=== PATIENT | female | born 1990 | race Caucasian/White ===

== ENCOUNTER 2016-06-01 13:26 | Emergency (ER) | payer SELFPAY ==
[~2016-06-01] VITALS: Ht 165.1 cm; Wt 65.0 kg
[~2016-06-01 13:26] MED LIST: HYDR-3240 PO
[2016-06-01] MEDS ORDERED: LORazepam 2 MG/ML, 1ML ONE (13:32)
[2016-06-01] MEDS ORDERED: LORazepam 2 MG/ML, 1ML IM ONE (14:00)
[2016-06-01] MEDS ORDERED: SODIUM CHLORIDE 0.9% 1,000ML IVBOLUS ONE ×2 (14:00→15:30)
[2016-06-01] MEDS ORDERED: SODIUM CHLORIDE FLUSH 10ML SYR IVF ONE (14:00)
[2016-06-01 14:04] LABS: ASPARTATE AMINO TRANSFERASE 12 U/L (15-37); BLOOD UREA NITROGEN 20 mg/dL (7-18)
[2016-06-01 16:08] VITALS: BP_DIAS 55
[2016-06-01 16:53] VITALS: BP_SYST 111
== END 2016-06-01 18:09 | disposition home or self-care (01) ==
LOC: ED 18:03
DX: G40.909 Epilepsy, unspecified, not intractable, without status epilepticus (principal)
CPT/HCPCS: 36415; 80053; 83605; 85025; 96360; 96361; 99285; J2060; J7030

== ENCOUNTER 2016-12-19 00:31 | Emergency (ER) | payer MEDICAID ==
[2016-12-19] MEDS ORDERED: LORazepam 2 MG/ML, 1ML ONE (00:37)
== END 2016-12-19 00:51 ==
LOC: EDBD 00:31 → MERGE 00:40 → ED 00:40
DX: Z53.21 Procedure and treatment not carried out due to patient leaving prior to being seen by health care provider (principal)
CPT/HCPCS: 82962

== ENCOUNTER 2017-06-21 14:04 | Emergency (ER) | payer SELFPAY ==
[~2017-06-21] VITALS: Ht 162.6 cm; Wt 57.0 kg
[2017-06-21] MEDS: SODIUM CHLORIDE FLUSH 10ML SYR IVF ONE ×2 (14:30→14:36)
[2017-06-21 15:17] LABS: MICROSCOPIC INDICATED
[2017-06-21 15:31] LABS: BASOPHILS # (AUTO) 0.03 x10^3/uL (0-0.1); BASOPHILS % (AUTO) 0 % (0-1); EOSINOPHILS % (AUTO) 0 % (1-7); LYMPHOCYTES # (AUTO) 0.66 x10^3/uL (1-3.4); LYMPHOCYTES % (AUTO) 4 % (22-44); MD NO; MEAN CORPUSCULAR HEMOGLOBIN 33.2 pg (27.0-34.8); MEAN CORPUSCULAR HGB CONC 34.5 g/dL (32.4-35.8); MEAN CORPUSCULAR VOLUME 96.1 fL (80-100); MEAN PLATELET VOLUME 9.4 fL (7.4-10.4); MONOCYTES % (AUTO) 3 % (2-9); NEUTROPHILS % (AUTO) 92 % (42-75); PLATELET COUNT 234 x10^3/uL (130-400); RED BLOOD COUNT 4.35 x10^6/uL (3.82-5.3)
[2017-06-21] MEDS ORDERED: ONDANSETRON ODT 8 MG ONE (15:34)
[2017-06-21 15:38] LABS: CULTURE INDICATED? NO
[2017-06-21 15:39] LABS: ALBUMIN 4.4 g/dL (3.4-5.0); ANION GAP 9 mmol/L (5-15); CHLORIDE 107 mmol/L (98-107)
[2017-06-21 15:43] LABS: ALANINE AMINOTRANSFERASE 26 U/L (12-78); ALKALINE PHOSPHATASE 84 U/L (45-117); CREATININE 0.68 mg/dL (0.55-1.02)
[2017-06-21] MEDS ORDERED: ONDANSETRON ODT 8 MG PO ONE (16:00)
[2017-06-21] MEDS ORDERED: ONDANSETRON ODT 8 MG PO PRN (16:00)
[2017-06-21] MEDS ORDERED: OMNIPAQUE 350 MG/ML, 100ML BOTTLE ONE (16:35)
[2017-06-21] MEDS ORDERED: HYDROcodone/APAP 5/325 TABLET ONE (17:30)
[2017-06-21] MEDS ORDERED: HYDROcodone/APAP 5/325 TABLET PO ONE (17:30)
[2017-06-21] MEDS ORDERED: PROMETHAZINE 25 MG/ML, 1ML ONE (18:06)
[2017-06-21 18:15] VITALS: BP 111/66
[2017-06-21] MEDS ORDERED: PROMETHAZINE 25 MG/ML, 1ML IM ONE (18:30)
== END 2017-06-21 18:23 | disposition home or self-care (01) ==
LOC: ED 15:44
DX: R10.84 Generalized abdominal pain (principal); K21.9 Gastro-esophageal reflux disease without esophagitis; Z90.49 Acquired absence of other specified parts of digestive tract; E87.6 Hypokalemia
CPT/HCPCS: 74177; 80053; 81001; 82962; 83605; 83690; 84703; 85025; 87040; 99285; Q0162; Q9967

== ENCOUNTER 2017-10-21 22:38 | Emergency (ER) | payer SELFPAY ==
[~2017-10-21] VITALS: Ht 162.6 cm; Wt 54.5 kg
[~2017-10-21 22:38] MED LIST changes: +ONDA4TAB7 PO; +depo
[2017-10-21] MEDS ORDERED: SODIUM CHLORIDE 0.9% 1,000ML IVBOLUS ONE (23:00)
[2017-10-21] MEDS ORDERED: MORPHINE SULFATE 4 MG/ML, 1ML IVPush PRN (23:00)
[2017-10-21] MEDS ORDERED: KETOROLAC 30 MG/1 ML IVPush ONE (23:00)
[2017-10-21] MEDS ORDERED: PROMETHAZINE 25 MG/ML, 1ML IM ONE (23:00)
[2017-10-21] MEDS ORDERED: SODIUM CHLORIDE FLUSH 10ML SYR IVF ONE (23:00)
[2017-10-21] MEDS ORDERED: KETOROLAC 30 MG/1 ML ONE (23:06)
[2017-10-21] MEDS ORDERED: PROMETHAZINE 25 MG/ML, 1ML ONE (23:06)
[2017-10-21] MEDS ORDERED: MORPHINE SULFATE 4 MG/ML, 1ML ONE (23:07)
[2017-10-21 23:09] LABS: BASOPHILS # (AUTO) 0.03 x10^3/uL (0-0.1); BASOPHILS % (AUTO) 0 % (0-1); EOSINOPHILS # (AUTO) 0.01 x10^3/uL (0-0.4); EOSINOPHILS % (AUTO) 0 % (1-7); LYMPHOCYTES # (AUTO) 1.58 x10^3/uL (1-3.4); LYMPHOCYTES % (AUTO) 13 % (22-44); MD NO; MEAN CORPUSCULAR HEMOGLOBIN 31.9 pg (27.0-34.8); MEAN CORPUSCULAR HGB CONC 34.7 g/dL (32.4-35.8); MEAN CORPUSCULAR VOLUME 91.7 fL (80-100); MEAN PLATELET VOLUME 9.1 fL (7.4-10.4); MONOCYTES # (AUTO) 0.63 x10^3/uL (0.2-0.8); MONOCYTES % (AUTO) 5 % (2-9); NEUTROPHILS # (AUTO) 9.95 x10^3/uL (1.8-6.8); NEUTROPHILS % (AUTO) 82 % (42-75); PLATELET COUNT 257 x10^3/uL (130-400); RED CELL DISTRIBUTION WIDTH 13.1 % (9.6-15.2)
[2017-10-21 23:14] LABS: ALANINE AMINOTRANSFERASE 32 U/L (12-78); ALBUMIN 4.9 g/dL (3.4-5.0); ANION GAP 9 mmol/L (5-15); CALCIUM 9.9 mg/dL (8.5-10.1); CHLORIDE 96 mmol/L (98-107); CREATININE 0.99 mg/dL (0.55-1.02)
[2017-10-21 23:15] VITALS: BP 121/89
[2017-10-21 23:19] LABS: ALKALINE PHOSPHATASE 108 U/L (45-117); BILIRUBIN,TOTAL 1.2 mg/dL (0.2-1.0); TOTAL PROTEIN 9.2 g/dL (6.4-8.2)
[2017-10-21 23:36] LABS: MICROSCOPIC INDICATED
[2017-10-21 23:38] LABS: CULTURE INDICATED? NO
== END 2017-10-22 00:41 | disposition home or self-care (01) ==
LOC: ED 23:05
DX: R10.84 Generalized abdominal pain (principal); G40.909 Epilepsy, unspecified, not intractable, without status epilepticus; Z90.49 Acquired absence of other specified parts of digestive tract; K21.9 Gastro-esophageal reflux disease without esophagitis
CPT/HCPCS: 36415; 80053; 81001; 83690; 84703; 85025; 96361; 96372; 96374; 96375; 99284; J1885; J2550; J7030

== ENCOUNTER 2018-02-05 23:31 | Emergency (ER) | payer SELFPAY ==
[~2018-02-05] VITALS: Ht 162.6 cm; Wt 61.4 kg
[2018-02-06] MEDS ORDERED: METOCLOPRAMIDE 5 MG/ML, 2ML IVPush ONE (00:30)
[2018-02-06] MEDS ORDERED: KETOROLAC 30 MG/1 ML IVPush ONE (00:30)
[2018-02-06] MEDS ORDERED: ZIPRASIDONE 20 MG INJ IM ONE ×2 (00:30→00:37)
[2018-02-06] MEDS ORDERED: METOCLOPRAMIDE 5 MG/ML, 2ML ONE (00:37)
[2018-02-06] MEDS ORDERED: KETOROLAC 30 MG/1 ML ONE (00:37)
[2018-02-06 00:44] LABS: ALANINE AMINOTRANSFERASE 19 U/L (12-78); ALBUMIN 4.4 g/dL (3.4-5.0); ANION GAP 8 mmol/L (5-15); CALCIUM 9.2 mg/dL (8.5-10.1); CHLORIDE 109 mmol/L (98-107)
[2018-02-06 00:45] LABS: BASOPHILS # (AUTO) 0.05 x10^3/uL (0-0.1); BASOPHILS % (AUTO) 1 % (0-1); EOSINOPHILS # (AUTO) 0.18 x10^3/uL (0-0.4); EOSINOPHILS % (AUTO) 2 % (1-7); LYMPHOCYTES # (AUTO) 2.21 x10^3/uL (1-3.4); LYMPHOCYTES % (AUTO) 21 % (22-44); MD NO; MEAN CORPUSCULAR HEMOGLOBIN 32.8 pg (27.0-34.8); MEAN CORPUSCULAR VOLUME 93.6 fL (80-100); MONOCYTES # (AUTO) 0.72 x10^3/uL (0.2-0.8); MONOCYTES % (AUTO) 7 % (2-9); NEUTROPHILS # (AUTO) 7.22 x10^3/uL (1.8-6.8); NEUTROPHILS % (AUTO) 70 % (42-75); PLATELET COUNT 262 x10^3/uL (130-400); RED BLOOD COUNT 4.62 x10^6/uL (3.82-5.3); RED CELL DISTRIBUTION WIDTH 12.5 % (9.6-15.2)
[2018-02-06 00:49] LABS: ALKALINE PHOSPHATASE 85 U/L (45-117); BILIRUBIN,TOTAL 0.8 mg/dL (0.2-1.0); TOTAL PROTEIN 7.9 g/dL (6.4-8.2)
[2018-02-06 01:30] LABS: CULTURE INDICATED? YES; MICROSCOPIC INDICATED
[2018-02-06] MEDS ORDERED: ONDANSETRON 2MG/ML, 2ML IVPush ONE (01:30)
[2018-02-06] MEDS ORDERED: DICYCLOMINE 10 MG/ML, 2ML IM ONE (01:30)
[2018-02-06] MEDS ORDERED: MAALOX/HYOSCYAMINE/LIDOCAINE 45 ML BTL PO ONE (01:30)
[2018-02-06] MEDS ORDERED: DICYCLOMINE 10 MG/ML, 2ML ONE (01:34)
[2018-02-06] MEDS ORDERED: MAALOX/HYOSCYAMINE/LIDOCAINE 45 ML BTL ONE (01:34)
[2018-02-06] MEDS ORDERED: ONDANSETRON 2MG/ML, 2ML ONE (01:34)
[2018-02-06] MEDS ORDERED: MORPHINE SULFATE 4 MG/ML, 1ML ONE (02:17)
[2018-02-06] MEDS ORDERED: morphine SULFATE 10 MG/ML, 1ML IVPush ONE (02:30)
[2018-02-06] MEDS ORDERED: D5%-0.45NACL+KCL 20MEQ 1,000 ML IV SCH (02:47)
[2018-02-06] MEDS ORDERED: KETOROLAC 30 MG/1 ML IV PRN (03:00)
[2018-02-06] MEDS ORDERED: ONDANSETRON 2MG/ML, 2ML IVPush PRN (03:00)
[2018-02-06] MEDS ORDERED: PROMETHAZINE 25 MG/ML, 1ML IM PRN (03:00)
[2018-02-06] MEDS ORDERED: ACETAMINOPHEN 325 MG TABLET PO PRN (03:00)
[2018-02-06 04:31] VITALS: BP 118/64
[2018-02-06] MEDS ORDERED: CIPROFLOXACIN 500 MG TABLET PO SCH (09:00)
[2018-02-06] MEDS ORDERED: FAMOTIDINE 20 MG/2 ML IVPush SCH (09:00)
== END 2018-02-06 04:34 | disposition left against medical advice (07) ==
LOC: ED 02-06 00:52 → INTOOBSV 02-06 02:20 → UNDOADMOB 02-06 02:20 → EDIP 02-06 02:20 → ED 02-06 04:34
DX: R10.84 Generalized abdominal pain (principal); R11.2 Nausea with vomiting, unspecified; K21.9 Gastro-esophageal reflux disease without esophagitis; G40.909 Epilepsy, unspecified, not intractable, without status epilepticus; F17.200 Nicotine dependence, unspecified, uncomplicated
CPT/HCPCS: 36415; 80053; 81001; 83690; 84703; 85025; 87086; 96372; 96374; 96375; 99283; J0500; J1885; J2270; J2405; J2765; J3486

== ENCOUNTER 2018-02-08 14:38 | Emergency (ER) | payer SELFPAY ==
[~2018-02-08] VITALS: Ht 162.6 cm; Wt 54.0 kg
[2018-02-08] MEDS ORDERED: FAMOTIDINE 20 MG/2 ML IVP ONE (15:00)
[2018-02-08] MEDS ORDERED: ONDANSETRON 2MG/ML, 2ML IVPush ONE (15:00)
[2018-02-08] MEDS ORDERED: KETOROLAC 30 MG/1 ML IVPush ONE (15:00)
--- NOTE | 2018-02-08 15:03 | NUR ---
NO NAUSEA ON ARRIVAL OR AT THIS TIME Addendum: 02/08/18 at 1503 by KANG NAUSEA MEDS NOT GIVEN PER ERP
[2018-02-08] MEDS ORDERED: KETOROLAC 30 MG/1 ML ONE ×2 (15:05→15:15)
[2018-02-08] MEDS ORDERED: FAMOTIDINE 20 MG TABLET ONE (15:15)
[2018-02-08] MEDS ORDERED: KETOROLAC 30 MG/1 ML IM ONE (15:30)
[2018-02-08] MEDS ORDERED: FAMOTIDINE 20 MG TABLET PO ONE (15:30)
--- NOTE | 2018-02-08 15:37 | NUR ---
R HAND IV STARTED SPLITTER OPERATOR CLOTTED OFF ERP AWARE MEDS TO BE GIVEN PO AND IM
--- NOTE | 2018-02-08 15:47 | NUR ---
RECIEVED REPORT FROM KARLA MORENO. ALL QUESTIONS ANSWERED.
--- NOTE | 2018-02-08 16:02 | NUR ---
PT STATES, "THE PAIN MEDICATION HELPED MY PAIN. MY PAIN IN MY STOMACH IS AT A 5 NOW."
[2018-02-08 16:24] VITALS: BP 117/77
--- NOTE | 2018-02-08 16:24 | NUR ---
Patient given discharge instructions and they have confirmed that they understand the instructions. Patient ambulatory with steady gait. Pt left with all personal belongings and discharge paperwork.
== END 2018-02-08 16:27 | disposition home or self-care (01) ==
LOC: ED 16:00
DX: R10.84 Generalized abdominal pain (principal); R11.0 Nausea; K21.9 Gastro-esophageal reflux disease without esophagitis; Z90.49 Acquired absence of other specified parts of digestive tract
CPT/HCPCS: 96372; 99283; J1885

== ENCOUNTER 2018-02-08 21:27 | Emergency (ER) | payer SELFPAY ==
[~2018-02-08] VITALS: Ht 170.2 cm; Wt 70.0 kg
[2018-02-08 21:35] VITALS: BP 112/82
[2018-02-08] MEDS ORDERED: ACETAMINOPHEN 500 MG TABLET ONE (21:50)
[2018-02-08] MEDS ORDERED: PROCHLORPERAZINE 5 MG/ML, 2ML ONE (21:50)
[2018-02-08] MEDS ORDERED: ACETAMINOPHEN 500 MG TABLET PO ONE (22:00)
[2018-02-08] MEDS ORDERED: PROCHLORPERAZINE 5 MG/ML, 2ML IVPush ONE (22:00)
[2018-02-08 22:03] LABS: ALANINE AMINOTRANSFERASE 28 U/L (12-78); ALBUMIN 5.2 g/dL (3.4-5.0); ANION GAP 15 mmol/L (5-15); CALCIUM 9.6 mg/dL (8.5-10.1); CHLORIDE 83 mmol/L (98-107)
[2018-02-08 22:05] LABS: ALKALINE PHOSPHATASE 98 U/L (45-117); BILIRUBIN,TOTAL 1.5 mg/dL (0.2-1.0)
--- NOTE | 2018-02-08 22:05 | NUR ---
PT BIB [facility] WITH C/O ABD PAIN PT WAS DISCHARGED FROM HERE TODAY FOR SAME
[2018-02-08 22:24] LABS: HCG UR SG 1.022 (1.003-1.030)
[2018-02-08 22:25] LABS: MICROSCOPIC INDICATED
[2018-02-08 22:32] LABS: CULTURE INDICATED? NO
[2018-02-08] MEDS ORDERED: SODIUM CHLORIDE 0.9% 1,000ML IVBOLUS ONE (23:00)
--- NOTE | 2018-02-08 23:17 | NUR ---
Patient/Caregiver given discharge instructions and LEFT AMA.they have confirmed that they understand the instructions. Patient ambulatory with steady gait.
[2018-02-08 23:20] LABS: MEAN CORPUSCULAR HEMOGLOBIN 32.5 pg (27.0-34.8); MEAN CORPUSCULAR VOLUME 92.7 fL (80-100); MEAN PLATELET VOLUME 9.2 fL (7.4-10.4); PLATELET COUNT 285 x10^3/uL (130-400); RED BLOOD COUNT 5.21 x10^6/uL (3.82-5.3); RED CELL DISTRIBUTION WIDTH 12.9 % (9.6-15.2)
[2018-02-08 23:39] LABS: BASOPHILS # (AUTO) 0.02 x10^3/uL (0-0.1); BASOPHILS % (AUTO) 0 % (0-1); EOSINOPHILS # (AUTO) 0.06 x10^3/uL (0-0.4); EOSINOPHILS % (AUTO) 0 % (1-7); LYMPHOCYTES # (AUTO) 1.58 x10^3/uL (1-3.4); LYMPHOCYTES % (AUTO) 12 % (22-44); MD SCAN; MONOCYTES # (AUTO) 1.57 x10^3/uL (0.2-0.8); MONOCYTES % (AUTO) 12 % (2-9); NEUTROPHILS # (AUTO) 9.58 x10^3/uL (1.8-6.8); NEUTROPHILS % (AUTO) 75 % (42-75)
== END 2018-02-08 23:19 | disposition left against medical advice (07) ==
LOC: ED 22:31
DX: R10.84 Generalized abdominal pain (principal); R11.0 Nausea; K21.9 Gastro-esophageal reflux disease without esophagitis; N18.9 Chronic kidney disease, unspecified
CPT/HCPCS: 36415; 80053; 81001; 81025; 83690; 85025; 96374; 99283; J0780

== ENCOUNTER 2018-02-09 19:12 | Inpatient (IN) | payer OTHER ==
[~2018-02-09] VITALS: Ht 162.6 cm; Wt 61.9 kg
--- NOTE | 2018-02-09 19:25 | NUR ---
PT BIB [facility] WITH C/O "PSEUDOSEIZURE" AROUND 1700 AFTER VOMITING TONIGHT. PT WAS JUST D/C THIS AM FOR SAME. PT STATES THIS HAPPENS S/T HER CHRONIC ABD PAIN. PT RECEIVED 5 MG VERSED COMPUTER METEOROLOGIST AND STATES HER MUSCLES ARE RELAXING BUT HER ABD PAIN IS STILL BAD AND BACK PAIN S/T SEIZURE. EMS STATES THEY NOTED PSEUDOSEIZURE ACTIVITY UPON ARRIVAL.
[2018-02-09] MEDS ORDERED: SODIUM CHLORIDE 0.9% 1,000ML IVBOLUS ONE (19:30)
[2018-02-09] MEDS ORDERED: SODIUM CHLORIDE FLUSH 10ML SYR IVF ONE (19:30)
[2018-02-09] MEDS ORDERED: ONDANSETRON 2MG/ML, 2ML IVPush ONE (19:30)
[2018-02-09] MEDS ORDERED: ONDANSETRON 2MG/ML, 2ML ONE (19:35)
[2018-02-09 19:38] LABS: BASOPHILS # (AUTO) 0.02 x10^3/uL (0-0.1); BASOPHILS % (AUTO) 0 % (0-1); EOSINOPHILS # (AUTO) 0.07 x10^3/uL (0-0.4); EOSINOPHILS % (AUTO) 1 % (1-7); LYMPHOCYTES # (AUTO) 1.38 x10^3/uL (1-3.4); LYMPHOCYTES % (AUTO) 15 % (22-44); MD NO; MEAN CORPUSCULAR HEMOGLOBIN 32.6 pg (27.0-34.8); MEAN CORPUSCULAR HGB CONC 35.3 g/dL (32.4-35.8); MEAN CORPUSCULAR VOLUME 92.2 fL (80-100); MONOCYTES # (AUTO) 0.83 x10^3/uL (0.2-0.8); MONOCYTES % (AUTO) 9 % (2-9); NEUTROPHILS # (AUTO) 6.91 x10^3/uL (1.8-6.8); NEUTROPHILS % (AUTO) 75 % (42-75); PLATELET COUNT 236 x10^3/uL (130-400); RED CELL DISTRIBUTION WIDTH 12.3 % (9.6-15.2)
--- NOTE | 2018-02-09 19:40 | NUR ---
PT MEDICATED PER APR FOR N/V--NO ACTIVE VOMITING SINCE ARRIVAL TO ER. SEIZURE PRECAUTIONS IN PLACE. NO SEIZURE ACTIVITY NOTED SINCE ARRIVAL. PT STATES SHE NEEDS SOMETHING FOR HER ABD PAIN BECAUSE THAT IS WHAT CAUSES THE VOMITING--THE ZOAN WONT HELP, SHE NEEDS PAIN MEDS. WILL NOTIFY ERP. CALL LIGHT IN REACH.
[2018-02-09 19:49] LABS: ALANINE AMINOTRANSFERASE 25 U/L (12-78); ALBUMIN 4.7 g/dL (3.4-5.0); ANION GAP 13 mmol/L (5-15); CALCIUM 8.9 mg/dL (8.5-10.1); CHLORIDE 85 mmol/L (98-107); CREATININE 1.98 mg/dL (0.55-1.02)
[2018-02-09 20:04] LABS: ALKALINE PHOSPHATASE 90 U/L (45-117); BILIRUBIN,TOTAL 1.4 mg/dL (0.2-1.0); TOTAL PROTEIN 8.4 g/dL (6.4-8.2)
--- NOTE | 2018-02-09 20:10 | NUR ---
PT TOWER EQUIPMENT INSTALLER LIGHT--REQUESTING PAIN MEDS AND ICE CHIPS. STATES HER NAUSEA HAS IMPROVED BUT THE PAIN WILL CAUSE HER TO VOMIT. MICHELLE LUNOG, AWARE AND NEW ORDERS RECEIVED. CRITICAL LAB K+ RECEIVED--2.1. ORDERS FOR K+ RECEIVED.
[2018-02-09] MEDS ORDERED: METOCLOPRAMIDE 5 MG/ML, 2ML ONE (20:19)
[2018-02-09] MEDS ORDERED: POTASSIUM CHLORIDE 20 MEQ TAB.ER.PRT ONE (20:19)
--- NOTE | 2018-02-09 20:24 | NUR ---
pt medicated per mar with reglan. Jayla at bedside to discuss admission. Pt states reglan will not help her abd pain. Pt requesting morphine. No narcotics to be given at this time. Pt to decide if she is willing to stay.
[2018-02-09] MEDS ORDERED: METOCLOPRAMIDE 5 MG/ML, 2ML IVPush ONE (20:30)
[2018-02-09] MEDS ORDERED: NS + 40MEQ KCL 1,000 ML IV ONE ×2 (20:30→21:00)
[2018-02-09] MEDS ORDERED: POTASSIUM CHLORIDE 20 MEQ TAB.ER.PRT PO ONE ×2 (20:30→21:00)
--- NOTE | 2018-02-09 20:55 | NUR ---
K+ ADMINISTERED PER APR. PT STATES SHE VOMITED "A LITTLE OF HER PILLS BUT CLEANED IT UP". NO VOMIT NOTED IN EMESIS BAG. NO VOMIT NOTED ON BLANKET. PT STATES REGLAN MADE HER ABD PAIN WORSE AND NEEDS PAIN MEDS. AWAITING ADMITTING MD TO DISCUSS NARCOTIC PAIN MEDS S/T PT SEEN FREQUENTLY FOR SAME. IV K+ INFUSING VIA PUMP. CALL LIGHT IN REACH.
--- NOTE | 2018-02-09 21:45 | NUR ---
ADMITTING SOCIAL MEDIA ANALYST AT BEDSIDE TO EVAL. AWAITING ORDERS.
[2018-02-09] MEDS ORDERED: METHOCARBAMOL 500 MG TABLET PO PRN (22:00)
[2018-02-09] MEDS ORDERED: DIPHENHYDRAMINE 25 MG CAPSULE PO PRN (22:00)
[2018-02-09] MEDS ORDERED: ONDANSETRON 2MG/ML, 2ML IVPush PRN (22:00)
[2018-02-09] MEDS ORDERED: DOCUSATE 100 MG CAPSULE PO PRN (22:00)
[2018-02-09] MEDS ORDERED: LIDODERM 5% PATCH TD PRN (22:00)
[2018-02-09] MEDS ORDERED: SODIUM CHLORIDE FLUSH 10ML SYR IVF PRN (22:00)
[2018-02-09] MEDS ORDERED: GABAPENTIN 300 MG CAPSULE PO PRN (22:00)
--- NOTE | 2018-02-09 22:35 | NUR ---
Pt resting with eyes closed and resp even and unlabored. VSS. No s/s of acute distress. Call light in reach. Awaiting transfer to floor.
--- NOTE | 2018-02-09 23:19 | NUR ---
PT UP TO BR TO OBTAIN UA. CLARIFIED ADMIT ORDER WITH PHYSICIAN OFFICE REP AND ORDER CHANGED TO MED TELE S/T K+. REPORT CALLED AND PT TO BE TRANSFERRED.
[2018-02-09] MEDS ORDERED: METHOCARBAMOL 750 MG TABLET ONE (23:29)
--- NOTE | 2018-02-09 23:32 | NUR ---
pt medicated per mar with robaxin s/t continued abd cramping and lbp.
[2018-02-09 23:37] LABS: MICROSCOPIC INDICATED
[2018-02-09 23:47] LABS: CULTURE INDICATED? NO
[2018-02-09 23:48] LABS: AMPHETAMINE SCREEN, URINE Negative (Negative); BARBITURATE SCREEN, URINE Negative (Negative); BENZODIAZEPINE SCREEN, URINE Positive (Negative); CANNABINOID SCREEN, URINE Positive (Negative); COCAINE SCREEN, URINE Negative (Negative); METHADONE SCREEN, URINE Negative (Negative); OPIATE SCREEN, URINE Negative (Negative)
[2018-02-10] MEDS ORDERED: METHOCARBAMOL 750 MG in DEXTROSE 5% 100 ML IV SCH (00:30)
[2018-02-10 00:33] VITALS: BP 141/86
[2018-02-10 01:11] VITALS: BP 141/86
[2018-02-10 01:45] LABS: ANION GAP 10 mmol/L (5-15); CALCIUM 7.9 mg/dL (8.5-10.1); CHLORIDE 95 mmol/L (98-107); CREATININE 1.19 mg/dL (0.55-1.02)
[2018-02-10 01:47] VITALS: BP 154/83
[2018-02-10] MEDS: NS + 40MEQ KCL 1,000 ML IV SCH ×2 (02:45→09:31)
[2018-02-10 06:17] LABS: CHLORIDE 93 mmol/L (98-107)
[2018-02-10 06:34] LABS: ANION GAP 8 mmol/L (5-15); CALCIUM 8.1 mg/dL (8.5-10.1); CREATININE 0.98 mg/dL (0.55-1.02)
[2018-02-10 07:04] VITALS: BP 116/77
[2018-02-10] MEDS: POTASSIUM CHLORIDE 20 MEQ TAB.ER.PRT PO SCH ×2 (09:14→14:46)
[2018-02-10 15:26] VITALS: BP 132/83
[2018-02-10 16:33] LABS: ANION GAP 6 mmol/L (5-15); CALCIUM 7.9 mg/dL (8.5-10.1); CHLORIDE 100 mmol/L (98-107)
[2018-02-10 16:34] LABS: CREATININE 0.64 mg/dL (0.55-1.02)
[2018-02-11] MEDS ORDERED: METHOCARBAMOL 750 MG in DEXTROSE 5% 100 ML IV ONE (01:00)
== END 2018-02-10 16:59 | disposition left against medical advice (07) | DRG 683 ==
LOC: ED 21:57 → EDIP 22:00 → 4WST 23:45
PROVIDERS: ADMIT Family Medicine; ATTEND Family Medicine
DX: N17.0 Acute kidney failure with tubular necrosis (principal); E87.1 Hypo-osmolality and hyponatremia; K31.89 Other diseases of stomach and duodenum; G89.29 Other chronic pain; G40.909 Epilepsy, unspecified, not intractable, without status epilepticus; F44.5 Conversion disorder with seizures or convulsions; F12.90 Cannabis use, unspecified, uncomplicated; E87.6 Hypokalemia; E86.0 Dehydration; N18.9 Chronic kidney disease, unspecified; K21.9 Gastro-esophageal reflux disease without esophagitis; N80.9 Endometriosis, unspecified; Z76.5 Malingerer [conscious simulation]; Z87.891 Personal history of nicotine dependence; F44.9 Dissociative and conversion disorder, unspecified; Z53.21 Procedure and treatment not carried out due to patient leaving prior to being seen by health care provider; Z90.49 Acquired absence of other specified parts of digestive tract
CPT/HCPCS: 36415; 80048; 80053; 80307; 81001; 83690; 83735; 84100; 84703; 85025; 93005; 99285; G0378; J2405; J2765; J2800; J3480; J7030

== ENCOUNTER 2018-05-15 08:44 | Emergency (ER) | payer SELFPAY ==
[~2018-05-15] VITALS: Ht 162.6 cm; Wt 58.0 kg
--- NOTE | 2018-05-15 08:52 | NUR ---
27 Y/O FEMALE BIB AMBULANCE WITH C/O SEIZURE LIKE ACTIVITY. PER REPORT PT WAS HOME AND BOYFRIEND CALLED. PER REPORT PT GETS VERY SHAKY WHEN SHE IS IN ENDOMETRIOUS PAIN. PT IS A&OX4, EVEN POST SEIZURE LIKE ACTIVITY. PT ABLE TO FOLLOW COMMANDS. 2.5 MG VERSED ADMINISTERED INTRAOPERATIVE NEURO TECH. PIV ESTABLISHED INTRAOPERATIVE NEURO TECH. PT PLACED ON CONT PULSE OX,NIBP. SEIZURE PRECAUTIONS IN PLACE.
--- NOTE | 2018-05-15 09:03 | NUR ---
PT URINATED ON HER SELF IN BED. PT SHAKING. AFTER SHAKING PT IS FOLLOWING COMMANDS HELPING WITH MOVING TO CHANGE LINENS. PT ABLE TO FOLLOW COMMANDS AND ADJUST HERSELF UP IN BED.
[2018-05-15] MEDS ORDERED: LORazepam 2 MG/ML, 1ML ONE (09:09)
--- NOTE | 2018-05-15 09:19 | NUR ---
PT REFUSING TO KEEP INFRASTRUCTURE TECH ON AT THIS TIME. PT PULLS OFF STICKERS
[2018-05-15 09:27] LABS: BASOPHILS # (AUTO) 0.09 x10^3/uL (0-0.1); BASOPHILS % (AUTO) 1 % (0-1); EOSINOPHILS % (AUTO) 0 % (1-7); LYMPHOCYTES # (AUTO) 0.86 x10^3/uL (1-3.4); LYMPHOCYTES % (AUTO) 5 % (22-44); MD NO; MEAN CORPUSCULAR HEMOGLOBIN 32.6 pg (27.0-34.8); MEAN CORPUSCULAR HGB CONC 34.8 g/dL (32.4-35.8); MEAN CORPUSCULAR VOLUME 93.7 fL (80-100); MEAN PLATELET VOLUME 9.6 fL (7.4-10.4); MONOCYTES # (AUTO) 0.51 x10^3/uL (0.2-0.8); MONOCYTES % (AUTO) 3 % (2-9); NEUTROPHILS # (AUTO) 14.69 x10^3/uL (1.8-6.8); NEUTROPHILS % (AUTO) 91 % (42-75); PLATELET COUNT 266 x10^3/uL (130-400); RED BLOOD COUNT 4.55 x10^6/uL (3.82-5.3); RED CELL DISTRIBUTION WIDTH 12.9 % (9.6-15.2)
[2018-05-15] MEDS ORDERED: LORazepam 2 MG/ML, 1ML IVPush ONE (09:30)
--- NOTE | 2018-05-15 09:34 | NUR ---
BOYFRIEND BEDSIDE. HE STATES "THIS HAS HAPPENED BEFORE. WE HAVE APPOINTMENTS SCHEDULED TO TRY AND HELP THIS. THEY UPPED HER BIRTHCONTROL IN HOPES IT WOULD HELP." PT STATES "THE SHAKING IS FROM THE PAIN."
[2018-05-15] MEDS ORDERED: ONDANSETRON 2MG/ML, 2ML ONE (09:37)
[2018-05-15] MEDS ORDERED: MORPHINE SULFATE 4 MG/ML, 1ML ONE (09:37)
[2018-05-15 09:38] LABS: ALANINE AMINOTRANSFERASE 28 U/L (12-78); ANION GAP 13 mmol/L (5-15); CALCIUM 9.8 mg/dL (8.5-10.1); CHLORIDE 104 mmol/L (98-107); CREATININE 0.94 mg/dL (0.55-1.02)
[2018-05-15 09:42] LABS: ALKALINE PHOSPHATASE 101 U/L (45-117); BILIRUBIN,TOTAL 0.6 mg/dL (0.2-1.0); TOTAL PROTEIN 8.6 g/dL (6.4-8.2)
--- NOTE | 2018-05-15 09:47 | NUR ---
PT GIVEN MORPHINE. PT STATES "I ALREADY FEEL BETTER. THANK YOU. ALL OF IT IS CAUSED BY PAIN. I KNOW IT'S NOT A SEIZURE DISORDER, MY BROTHER HAD EPILEPSY." PT IS CALM AND A&OX4. PT BEING TAKEN TO IMAGING.
[2018-05-15] MEDS ORDERED: ONDANSETRON 2MG/ML, 2ML IVPush ONE (10:00)
[2018-05-15] MEDS ORDERED: MORPHINE SULFATE 4 MG/ML, 1ML IVPush PRN (10:00)
--- NOTE | 2018-05-15 10:24 | NUR ---
PT BACK FROM IMAGING. PER HALL PORTER PT TOLERATED WITH NO COMPLICATIONS OR SEIZURE LIKE ACTIVITY
--- NOTE | 2018-05-15 10:26 | NUR ---
PT SLEEPING CALMLY ON GURNEY. NO ACUTE DISTRESS NOTED. WILL CONTINUE TO MONITOR
--- NOTE | 2018-05-15 11:16 | NUR ---
PT ABLE TO PLACE HERSELF ON A BEDPAN FOR UA SAMPLE. PT HAS HAD NO SEIZURE/SHAKING LIKE ACTIVITY SINCE BEFORE LEAVING ROOM FOR IMAGING. PT STATES SHE FEELS BETTER. NO ACUTE DISTRESS NOTED. GAVE PT COOL WASHCLOTH FOR HEAD. NO NEEDS REQUESTED AT THIS TIME.
[2018-05-15 11:35] VITALS: BP 117/77
[2018-05-15 11:53] LABS: MICROSCOPIC INDICATED
--- NOTE | 2018-05-15 11:59 | NUR ---
PT SLEEPING ON GURNEY. NO ACUTE DISTRESS NOTED. NO SEIZURE/SHAKING LIKE ACTIVITY. WILL CONTINUE TO MONITOR.
[2018-05-15 12:06] LABS: CULTURE INDICATED? YES
== END 2018-05-15 12:41 ==
LOC: ED 10:34
DX: N30.00 Acute cystitis without hematuria (principal); D72.829 Elevated white blood cell count, unspecified; K21.9 Gastro-esophageal reflux disease without esophagitis
CPT/HCPCS: 36415; 76830; 80053; 81001; 84703; 85025; 87086; 96374; 96375; 99284; J2060; J2405

== ENCOUNTER 2018-08-09 08:26 | Emergency (ER) | payer SELFPAY ==
[~2018-08-09] VITALS: Ht 165.1 cm; Wt 61.5 kg
[2018-08-09] MEDS ORDERED: LORazepam 2 MG/ML, 1ML ONE (08:34)
[2018-08-09] MEDS ORDERED: SODIUM CHLORIDE FLUSH 10ML SYR IVF ONE (09:00)
[2018-08-09 09:03] LABS: BASOPHILS # (AUTO) 0.01 x10^3/uL (0-0.1); BASOPHILS % (AUTO) 0 % (0-1); EOSINOPHILS % (AUTO) 0 % (1-7); LYMPHOCYTES # (AUTO) 1.05 x10^3/uL (1-3.4); LYMPHOCYTES % (AUTO) 8 % (22-44); MD NO; MEAN CORPUSCULAR HEMOGLOBIN 31.9 pg (27.0-34.8); MEAN CORPUSCULAR HGB CONC 33.9 g/dL (32.4-35.8); MEAN CORPUSCULAR VOLUME 94.1 fL (80-100); MEAN PLATELET VOLUME 8.9 fL (7.4-10.4); MONOCYTES # (AUTO) 0.36 x10^3/uL (0.2-0.8); MONOCYTES % (AUTO) 3 % (2-9); NEUTROPHILS # (AUTO) 11.12 x10^3/uL (1.8-6.8); NEUTROPHILS % (AUTO) 89 % (42-75); PLATELET COUNT 234 x10^3/uL (130-400); RED BLOOD COUNT 4.64 x10^6/uL (3.82-5.3); RED CELL DISTRIBUTION WIDTH 13.4 % (9.6-15.2)
[2018-08-09] MEDS ORDERED: ONDA4TAB7 PO (09:05)
[2018-08-09 09:15] LABS: ALANINE AMINOTRANSFERASE 20 U/L (12-78); ALBUMIN 4.8 g/dL (3.4-5.0); ANION GAP 13 mmol/L (5-15); CALCIUM 9.4 mg/dL (8.5-10.1); CHLORIDE 107 mmol/L (98-107); CREATININE 0.89 mg/dL (0.55-1.02)
[2018-08-09 09:19] LABS: ALKALINE PHOSPHATASE 98 U/L (45-117); BILIRUBIN,TOTAL 0.7 mg/dL (0.2-1.0); TOTAL PROTEIN 8.5 g/dL (6.4-8.2)
[2018-08-09] MEDS ORDERED: LORazepam 2 MG/ML, 1ML IVPush ONE (09:30)
--- NOTE | 2018-08-09 09:30 | NUR ---
code 250 pt was having sz in the lobby at the side . pt was lifted to the gurney and put T4 pt was maintained airway and shook body no signs of tonic or chronic sz activity, just pt shook core body. applied non rebreather mask with oxygen 15liters iv was started given ativan 1 mg of ativan via iv. no airway was compromised. . . set RA. maintained oxygen sats >95% HR 70's to 120's pt was able to respond from the staffs. pt rests but still having intmittent body movement. at bed side expalined pt was having these symptoms for one week if pt had menstrual period ( hx of endometriosis ) . pt visited few times ED d/t same symptoms.
--- NOTE | 2018-08-09 09:54 | NUR ---
pt is resting no actual core body movement vss stable pt is asking naty pelayoy
[2018-08-09] MEDS ORDERED: MORPHINE SULFATE 4 MG/ML, 1ML IVPush STA (09:55)
[2018-08-09] MEDS ORDERED: ONDANSETRON 2MG/ML, 2ML ONE (09:56)
[2018-08-09] MEDS ORDERED: MORPHINE SULFATE 4 MG/ML, 1ML ONE (10:02)
[2018-08-09] MEDS ORDERED: ONDANSETRON 2MG/ML, 2ML IVPush ONE (10:30)
--- NOTE | 2018-08-09 11:16 | NUR ---
obtained consent of narcotic prescription pt undertood pt up ambulated to check out
[2018-08-09 11:17] VITALS: BP 116/70
== END 2018-08-09 11:19 | disposition home or self-care (01) ==
LOC: ED 11:00
DX: R10.84 Generalized abdominal pain (principal); F17.200 Nicotine dependence, unspecified, uncomplicated; Z90.49 Acquired absence of other specified parts of digestive tract
CPT/HCPCS: 36415; 80053; 83605; 84703; 85025; 96374; 96375; 99283; J2060; J2270; J2405

== ENCOUNTER 2019-08-03 01:21 | Emergency (ER) | payer OTHER ==
[~2019-08-03] VITALS: Ht 162.6 cm; Wt 60.0 kg
[2019-08-03] MEDS ORDERED: ONDANSETRON 2MG/ML, 2ML ONE ×2 (01:50→03:35)
[2019-08-03] MEDS ORDERED: HYDROmorphone 1 MG/ML, 1ML INJ ONE ×2 (01:50→03:21)
[2019-08-03] MEDS ORDERED: ONDANSETRON 2MG/ML, 2ML IVPush ONE ×2 (02:00→04:00)
[2019-08-03] MEDS: HYDROmorphone 1 MG/ML, 1ML INJ IVPush PRN ×2 (02:05→03:24)
[2019-08-03 02:20] LABS: MEAN CORPUSCULAR HEMOGLOBIN 31.8 pg (27.0-34.8); MEAN CORPUSCULAR HGB CONC 34.1 g/dL (32.4-35.8); MEAN CORPUSCULAR VOLUME 93.4 fL (80-100); MEAN PLATELET VOLUME 9.6 fL (7.4-10.4); PLATELET COUNT 324 x10^3/uL (130-400); RED BLOOD COUNT 4.58 x10^6/uL (3.82-5.3); RED CELL DISTRIBUTION WIDTH 13.8 % (9.6-15.2)
[2019-08-03 02:28] LABS: ANION GAP 11 mmol/L (5-15); CALCIUM 9.9 mg/dL (8.5-10.1); CHLORIDE 105 mmol/L (98-107); CREATININE 1.21 mg/dL (0.55-1.02)
[2019-08-03 02:42] LABS: MICROSCOPIC INDICATED
[2019-08-03 02:50] LABS: BASOPHILS # (AUTO) 0.02 x10^3/uL (0-0.1); BASOPHILS % (AUTO) 0 % (0-1); EOSINOPHILS % (AUTO) 0 % (1-7); LYMPHOCYTES # (AUTO) 0.65 x10^3/uL (1-3.4); LYMPHOCYTES % (AUTO) 5 % (22-44); MD SCAN; MONOCYTES # (AUTO) 0.34 x10^3/uL (0.2-0.8); MONOCYTES % (AUTO) 2 % (2-9); NEUTROPHILS # (AUTO) 13.49 x10^3/uL (1.8-6.8); NEUTROPHILS % (AUTO) 93 % (42-75)
--- NOTE | 2019-08-03 03:06 | NUR ---
THIS PT WAS BIB [facility] FROM HOME. AT TIME OF ARRIVAL PT WAS VISIBLY SHAKING. WHEN THIS RN ASKED PT WHY SHE WAS SHAKING SHE STATED IT HAPPENS WHEN SHE'S IN PAIN. PT'S VS WERE STABLE EVEN WHILE SHAKING. PT VOMITTED CLEAR, YELLOW BILE BEFORE VOMIT BAG WAS IN HAND. PT MEDICATED TO MAR AND STATED SOME RELIEF. STRAIGHT CATH FOR UA DONE. PT CURRENTLY LAYING IN BED, POSITIONED TO COMFORT, EYES CLOSED, RESPIRATIONS EVEN AND UNLABORED. WILL CONTINUE TO MONITOR.
--- NOTE | 2019-08-03 03:53 | NUR ---
PT SITTING UP IN BED, CONVERSING WITH THIS RN. PT GIVEN JUICE FOR PO CHALLENGE.
[2019-08-03 04:27] VITALS: BP 123/69
--- NOTE | 2019-08-03 04:27 | NUR ---
PT TOLERATED PO CHALLENGE, NO COMPLAINTS.
== END 2019-08-03 04:32 | disposition home or self-care (01) ==
LOC: ED 04:05
DX: R10.32 Left lower quadrant pain (principal); R10.31 Right lower quadrant pain; R11.2 Nausea with vomiting, unspecified; K21.9 Gastro-esophageal reflux disease without esophagitis; F17.210 Nicotine dependence, cigarettes, uncomplicated; Z90.49 Acquired absence of other specified parts of digestive tract
CPT/HCPCS: 36415; 80048; 81001; 82040; 84703; 85025; 87086; 96374; 96375; 96376; 99284; 99406; J1170; J2405

== ENCOUNTER 2019-08-06 00:01 | Emergency (ER) | payer OTHER ==
[~2019-08-06] VITALS: Ht 162.6 cm; Wt 50.4 kg
--- NOTE | 2019-08-06 00:40 | NUR ---
THIS IS A 28 YO FEMALE COMING IN FOR "ENDOMETRIOSIS PAIN", LMP ENDED 2 DAYS AGO, WAS TRYING TO SCHEDULE DEPO SHOT AROUND MENSTUAL CYCLE TO MISS PERIODS/CRAMPING, "THEY MIS-TIMED IT", C/O GENERALIZED ABD PAIN RATED 9/10, TENDER TO PALPATION. STATED "I HAVEN'T EATING OR DRANK REALLY ANYTHING FOR THE PAST ALMOST WEEK". ALL MONITORING IN PLACE, ERP TO ROOM FOR EVAL. CALL LIGHT IN REACH
[2019-08-06] MEDS ORDERED: KETOROLAC 30 MG/1 ML ONE (00:42)
[2019-08-06] MEDS ORDERED: HYDROmorphone 2 MG/ML, 1ML ONE (00:42)
--- NOTE | 2019-08-06 00:54 | NUR ---
MEDICATED PER EMAR
[2019-08-06] MEDS ORDERED: KETOROLAC 30 MG/1 ML IM ONE (01:00)
[2019-08-06] MEDS ORDERED: HYDROmorphone 1 MG/ML, 1ML INJ IM ONE (01:00)
--- NOTE | 2019-08-06 01:00 | NUR ---
UA COLLECTED VIA STRAIGHT CATH PER PATIENT REQUEST. WALKED TO LAB
[2019-08-06 01:05] LABS: BASOPHILS # (AUTO) 0.03 x10^3/uL (0-0.1); BASOPHILS % (AUTO) 0 % (0-1); EOSINOPHILS # (AUTO) 0.01 x10^3/uL (0-0.4); EOSINOPHILS % (AUTO) 0 % (1-7); LYMPHOCYTES # (AUTO) 1.25 x10^3/uL (1-3.4); LYMPHOCYTES % (AUTO) 15 % (22-44); MD NO; MEAN CORPUSCULAR HEMOGLOBIN 31.7 pg (27.0-34.8); MEAN CORPUSCULAR VOLUME 93.4 fL (80-100); MEAN PLATELET VOLUME 8.9 fL (7.4-10.4); MONOCYTES # (AUTO) 0.91 x10^3/uL (0.2-0.8); MONOCYTES % (AUTO) 11 % (2-9); NEUTROPHILS # (AUTO) 6.29 x10^3/uL (1.8-6.8); NEUTROPHILS % (AUTO) 74 % (42-75); PLATELET COUNT 299 x10^3/uL (130-400); RED CELL DISTRIBUTION WIDTH 13.3 % (9.6-15.2)
--- NOTE | 2019-08-06 01:11 | NUR ---
PATIENT TO ULTRASOUND
[2019-08-06 01:12] LABS: MICROSCOPIC INDICATED
[2019-08-06 01:15] LABS: ALBUMIN 4.9 g/dL (3.4-5.0); ANION GAP 13 mmol/L (5-15); CALCIUM 9.3 mg/dL (8.5-10.1); CHLORIDE 88 mmol/L (98-107); CREATININE 0.88 mg/dL (0.55-1.02)
[2019-08-06] MEDS ORDERED: SODIUM CHLORIDE 0.9% 1,000ML IVBOLUS ONE (02:00)
[2019-08-06] MEDS ORDERED: SODIUM CHLORIDE FLUSH 10ML SYR IVF ONE (02:00)
--- NOTE | 2019-08-06 02:01 | NUR ---
PIV PLACED, IVF RUNNING
[2019-08-06] MEDS ORDERED: HYDROcodone/APAP 5/325 TABLET ONE (02:16)
[2019-08-06] MEDS ORDERED: HYDROcodone/APAP 5/325 TABLET PO ONE (02:30)
[2019-08-06 03:07] VITALS: BP 131/77
--- NOTE | 2019-08-06 03:07 | NUR ---
Patient given discharge instructions and they have confirmed that they understand the instructions. Patient ambulatory with steady gait.
== END 2019-08-06 03:10 | disposition home or self-care (01) ==
LOC: ED 02:17
DX: N80.3 Endometriosis of pelvic peritoneum (principal); E86.0 Dehydration; R10.84 Generalized abdominal pain; R11.2 Nausea with vomiting, unspecified; K21.9 Gastro-esophageal reflux disease without esophagitis; G40.909 Epilepsy, unspecified, not intractable, without status epilepticus; F17.210 Nicotine dependence, cigarettes, uncomplicated
CPT/HCPCS: 36415; 76830; 80048; 81001; 82040; 84703; 85025; 96360; 96372; 99284; 99406; J1170; J1885; J7030

== ENCOUNTER 2019-08-12 08:03 | Emergency (ER) | payer OTHER ==
[~2019-08-12] VITALS: Ht 162.6 cm; Wt 49.0 kg
[2019-08-12] MEDS ORDERED: LORazepam 2 MG/ML, 1ML ONE (08:06)
--- NOTE | 2019-08-12 08:11 | NUR ---
PATIENT WAS A CODE 250 AT TRIAGE DESK, I WAS ONLY TOLD SHE ARRIVED ALONE FOR ENDOMETRIOUS PAIN AND SHE WAS SEIZING WHEN i ARRIVED. WITH HELP, PLACED HER IN [facility] AND GOT HER IN ROOM AND ON MONITOR. SHE HAS NOT STOPPED SEIZING. SEIZURE PADS. OXYGEN 98% ON ROOM AIR. SHE ISN'T ANSWERING ANY QUESTIONS. TACHY. MEDICATED. UNKNOWN HISTORY
--- NOTE | 2019-08-12 08:19 | NUR ---
UNABLE TO FULLY ASSESS HISTORY FOR TRIAGE/CHECK IN - PATIENT NOT ANSWERING QUESTIONS
[2019-08-12 08:40] LABS: ALBUMIN 3.6 g/dL (3.4-5.0); ANION GAP 8 mmol/L (5-15); CALCIUM 8.5 mg/dL (8.5-10.1); CHLORIDE 109 mmol/L (98-107)
[2019-08-12 08:41] LABS: SALICYLATE LEVEL < 1.7 mg/dL (2.8-20.0)
[2019-08-12 08:45] LABS: ALANINE AMINOTRANSFERASE 30 U/L (12-78); ALKALINE PHOSPHATASE 81 U/L (45-117); BILIRUBIN,TOTAL 0.2 mg/dL (0.2-1.0); CREATININE 0.52 mg/dL (0.55-1.02); TOTAL PROTEIN 7.3 g/dL (6.4-8.2)
--- NOTE | 2019-08-12 08:45 | NUR ---
let pa know that patient continues to shake/seizure but oxygen is great
[2019-08-12 08:48] LABS: BASOPHILS # (AUTO) 0.02 x10^3/uL (0-0.1); BASOPHILS % (AUTO) 0 % (0-1); EOSINOPHILS # (AUTO) 0.01 x10^3/uL (0-0.4); EOSINOPHILS % (AUTO) 0 % (1-7); LYMPHOCYTES # (AUTO) 0.95 x10^3/uL (1-3.4); LYMPHOCYTES % (AUTO) 11 % (22-44); MD SCAN; MEAN CORPUSCULAR HEMOGLOBIN 31.5 pg (27.0-34.8); MEAN CORPUSCULAR HGB CONC 33.1 g/dL (32.4-35.8); MEAN CORPUSCULAR VOLUME 95.2 fL (80-100); MEAN PLATELET VOLUME 8.3 fL (7.4-10.4); MONOCYTES # (AUTO) 0.25 x10^3/uL (0.2-0.8); MONOCYTES % (AUTO) 3 % (2-9); NEUTROPHILS # (AUTO) 7.69 x10^3/uL (1.8-6.8); NEUTROPHILS % (AUTO) 86 % (42-75); PLATELET COUNT 221 x10^3/uL (130-400); RED BLOOD COUNT 3.92 x10^6/uL (3.82-5.3); RED CELL DISTRIBUTION WIDTH 14.3 % (9.6-15.2)
[2019-08-12] MEDS ORDERED: LORazepam 2 MG/ML, 1ML IM PRN (09:00)
--- NOTE | 2019-08-12 09:01 | NUR ---
PATIENT CONTINUES TO SHAKE IN BED. CATH'D PATIENT WITH HELP VSS
[2019-08-12] MEDS ORDERED: KETOROLAC 30 MG/1 ML ONE (09:24)
--- NOTE | 2019-08-12 09:27 | NUR ---
I QUIETLY WAKED IN ROOM AND PATIENT WAS CALM, NO MOTION, HR ON MONITOR 85. WHEN I SPOKE "ARE YOU FEELING BETTER?" SHE BEGAN SHAKING AGAIN AND HR UP TO 105
[2019-08-12] MEDS ORDERED: KETOROLAC 30 MG/1 ML IM ONE (09:30)
[2019-08-12 10:13] LABS: MICROSCOPIC INDICATED
[2019-08-12 11:08] LABS: AMPHETAMINE SCREEN, URINE Negative (Negative); BARBITURATE SCREEN, URINE Negative (Negative); BENZODIAZEPINE SCREEN, URINE Negative (Negative); CANNABINOID SCREEN, URINE Positive (Negative); COCAINE SCREEN, URINE Negative (Negative); METHADONE SCREEN, URINE Negative (Negative); OPIATE SCREEN, URINE Negative (Negative)
[2019-08-12 11:21] VITALS: BP 117/78
--- NOTE | 2019-08-12 11:22 | NUR ---
patient not shaking at this time and more oriented. still reluctant to answer questions. discharge reviewd.
--- NOTE | 2019-08-12 11:36 | NUR ---
discharge teaching reviewed. patient given cab voucher to get home. she was able to get up and get dressed and walk. she begins voluntarily shaking at times.
== END 2019-08-12 11:38 | disposition home or self-care (01) ==
LOC: ED 09:00
DX: R56.9 Unspecified convulsions (principal); G89.29 Other chronic pain; R10.2 Pelvic and perineal pain; R10.30 Lower abdominal pain, unspecified; K21.9 Gastro-esophageal reflux disease without esophagitis; Z90.49 Acquired absence of other specified parts of digestive tract
CPT/HCPCS: 36415; 80053; 80307; 81001; 84703; 85025; 96372; 99285; J1885; J2060